=== PATIENT | male | born 1955 | race Caucasian/White ===

== ENCOUNTER 2021-05-29 14:57 | Emergency (ER) | payer OTHER ==
[~2021-05-29] VITALS: Ht 172.7 cm; Wt 63.5 kg
[2021-05-29] MEDS ORDERED: LISINOPRIL20 MG PO (18:17)
[2021-05-29] MEDS ORDERED: HYDROCHLOROTH12.5 MG PO (18:17)
[2021-05-29] MEDS ORDERED: CARBAMAZEPINE400 M1 PO (18:18)
[2021-05-29] MEDS ORDERED: COREG25 MG PO (18:18)
[2021-05-29] MEDS ORDERED: ANUSOL-HC30 GM PR (20:53)
[2021-05-29] MEDS ORDERED: DOXYCYCLINE HY100 MG PO (20:53)
== END 2021-05-29 22:03 | disposition home or self-care (01) ==
LOC: ED 14:57
DX: S60.932A Unspecified superficial injury of left thumb, initial encounter (principal); S60.922A Unspecified superficial injury of left hand, initial encounter; S60.921A Unspecified superficial injury of right hand, initial encounter; S60.912A Unspecified superficial injury of left wrist, initial encounter; S60.911A Unspecified superficial injury of right wrist, initial encounter; L08.9 Local infection of the skin and subcutaneous tissue, unspecified; K64.4 Residual hemorrhoidal skin tags; W22.8XXA Striking against or struck by other objects, initial encounter; I10 Essential (primary) hypertension; Z79.899 Other long term (current) drug therapy
CPT/HCPCS: 80053; 81001; 83690; 85025; 99283